=== PATIENT | female | born 1955 | race African-American/Black ===

== ENCOUNTER 2021-03-29 12:20 | Outpatient (CLI) | payer MEDICARE, BC | END 2021-03-29 12:21 | disposition home or self-care (01) | LOC: SCSRAD 12:20 | PROVIDERS: ATTEND Family Medicine | DX: M53.86 Other specified dorsopathies, lumbar region (principal) | CPT/HCPCS: 72120 ==

== ENCOUNTER 2022-05-20 12:45 | Outpatient (CLI) | payer MEDICARE, BC | END 2022-05-20 12:46 | disposition home or self-care (01) | LOC: BICULT 12:45 | PROVIDERS: ATTEND Family Medicine | DX: R60.0 Localized edema (principal) ==

== ENCOUNTER 2023-06-09 10:40 | Outpatient (CLI) | payer MEDICARE, BC | END 2023-06-09 10:41 | disposition home or self-care (01) | LOC: BICMRI 10:40 | PROVIDERS: ATTEND Family Medicine | DX: M47.26 Other spondylosis with radiculopathy, lumbar region (principal); M51.36 Other intervertebral disc degeneration, lumbar region; M48.061 Spinal stenosis, lumbar region without neurogenic claudication | CPT/HCPCS: 72100; 72148 ==

== ENCOUNTER 2024-01-01 18:28 | Emergency (ER) | payer MEDICARE ==
[2024-01-01 21:28] LABS: #Eosinphils 0.1 thou/uL (0.0-0.7); #Monocytes 0.6 thou/uL (0.11-0.59); #Neutrophils 2.5 thou/uL (1.40-6.50); %Basophils 0.4 % (0.0-1.0); %Eosinophils 2.4 % (0.0-10.0); %Lymphocytes 39.9 % (21.0-51.0); %Monocytes 11.6 % (0.0-10.0); %Neutrophils 45.1 % (42.0-75.0); Hematocrit 35.4 % (36.0-47.0); Hemoglobin 11.4 g/dL (12.0-16.0); Mean Corpuscular HGB CONC 32.2 g/dL (32.0-36.0); Mean Corpuscular Hemoglobin 29.5 pg (27.0-31.0); Mean Corpuscular Volume 91.7 fl (78.0-98.0); Mean Platelet Volume 10.7 fL (7.4-10.4); Platelet Count 187 10x3/uL (130-400); RBC Distribution Width 13.4 % (11.5-14.5); Red Blood Cell (RBC) Count 3.86 mill/uL (4.20-5.40); White Blood Cell (WBC) Count 5.4 10x3/uL (4.8-10.8)
[2024-01-01 21:46] LABS: ALT (SGPT) 9 U/L (8-55); AST (SGOT) 15 U/L (5-34); Albumin 3.7 g/dL (3.4-4.8); Alkaline Phosphatase 86 U/L (40-110); Anion Gap 11 mmol/L (10-20); BUN (Urea Nitrogen) 15 mg/dL (9.8-20.1); Bilirubin, Total 0.7 mg/dL (0.2-1.2); Calc. Creatinine Clearance 0 mL/min (70-130); Carbon Dioxide 23 mmol/L (23-31); Chloride 109 mmol/L (98-107); Estimated GFR 55; Globulin 2.8 g/dL (2.4-3.5); Glucose 75 mg/dL (80-115); Potassium 3.9 mmol/L (3.5-5.1); Protein, Total 6.5 g/dL (5.8-8.1); Sodium 139 mmol/L (136-145)
== END 2024-01-01 23:40 | disposition home or self-care (01) ==
LOC: ERS 18:28
DX: R22.43 Localized swelling, mass and lump, lower limb, bilateral (principal); I10 Essential (primary) hypertension; E78.00 Pure hypercholesterolemia, unspecified
CPT/HCPCS: 36415; 71046; 80048; 83880; 85025; 85379; 93970

== ENCOUNTER 2024-03-09 16:00 | Outpatient (CLI) | payer MEDICARE | END 2024-03-09 16:01 | disposition home or self-care (01) | LOC: SLEEPLAB 16:00 | PROVIDERS: ATTEND Family Medicine | DX: G47.33 Obstructive sleep apnea (adult) (pediatric) (principal); K21.9 Gastro-esophageal reflux disease without esophagitis; E66.9 Obesity, unspecified; I10 Essential (primary) hypertension; R06.83 Snoring; R35.1 Nocturia | CPT/HCPCS: 95811 ==